=== PATIENT | female | born 1965 | race Caucasian/White ===

== ENCOUNTER 2016-08-23 11:02 | Emergency (ER) | payer SELFPAY ==
[~2016-08-23 11:02] MED LIST: ADVANCED PAIN200 MG PO; ALLEGRA180 MG PO; ALLERGY RELIEF10 MG PO; ARTIFICIAL TEAR15 M1 OP; ATIVAN0.5 MG PO; BUSPAR5 MG PO; CELEBREX100 MG PO; DELTASONE50 MG PO; DESYREL150 MG PO; DOXYCYCLINE HY100 MG PO; EAC TP; EFFEXOR XR150 MG/TAB PO; EFFEXOR75 M1 PO; ESTRADIOL1 MG PO; INVEGA3 MG/BOTTL PO; LAMICTAL100 M1 PO; MILK OF MA400 MG/5 M PO; NEXIUM20 MG PO; NEXIUM40 MG PO; PEPCID20 MG PO; PRILOSEC OTC20 MG PO; PRILOSEC20 MG PO; STOOL SOFTENER; TOPAMAX50 MG PO; TYLENOL325 M1 PO; TYLENOL500 MG PO; ULTRACET TABLET1 TAB PO; ULTRAM PO; UNKNOWN ANTIBIOTIC PO; VIBRA-TABS100 MG PO; VISTARIL50 MG PO; WAL-PROFEN200 M1 PO; ZYRTEC10 M1 PO; [UNRECOGNIZED DRUG - OTHER] TOP
[2016-08-23] MEDS ORDERED: ATIVAN0.5 M1 PO (11:36)
[2016-08-23] MEDS ORDERED: ZITHROMAX250 M1 PO (12:41)
[2016-08-23] MEDS ORDERED: PROAIR HFA8.5 GM INH (12:41)
[2016-08-23] MEDS ORDERED: DOXYCYCLINE HY100 M3 PO (13:10)
== END 2016-08-23 13:10 ==
LOC: EDMED 11:02
DX: J20.9 Acute bronchitis, unspecified (principal); F17.210 Nicotine dependence, cigarettes, uncomplicated